=== PATIENT | female | born 1985 | race Two or more races ===

== ENCOUNTER 2017-07-27 12:15 | Emergency (ER) | payer OTHER ==
[2017-07-27 12:24] VITALS: BMI 25.0
--- NOTE | 2017-07-27 13:11 | PDOC ---
History of Present Illness - General History Source: Patient Exam Limitations: No Limitations - History of Present Illness Initial Comments: 07/27/17 14:04 The patient is a 32-year-old female, 6 weeks , , with a significant past medical history of migraines, who presents to the emergency department with abdominal pain today. Patient denies any confirmatory studies of her yet. She reports upper abdominal pain with one episode of non-bloody vomiting. Patient denies any acute trauma or vaginal bleed. The patient denies chest pain , shortness of breath, headache and dizziness. The patient denies fever, chills , diarrhea and constipation. The patient denies dysuria, frequency, urgency and hematuria. Allergies: NKDA Social History: No toxic habits reported <Fanny Teran - Last Filed: 07/27/17 14:04> <Roxi Rao - Last Filed: 07/29/17 09:22> - General Chief Complaint: Pain Stated Complaint: ABD PAIN (6 WKS ) Time Seen by Provider: 07/27/17 13:11 Past History <Fanny Teran - Last Filed: 07/27/17 14:04> - Past Medical History COPD: No - Suicide/Smoking/Psychosocial Hx Smoking History: Never smoked Information on smoking cessation initiated: No Hx Alcohol Use: No Drug/Substance Use Hx: No Substance Use Type: None <Roxi Rao - Last Filed: 07/29/17 09:22> - Past Medical History Allergies/Adverse Reactions: Allergies Allergy/AdvReac Type Severity Reaction Status Date / Time No Known Allergies Allergy Verified 07/27/17 12:24 Home Medications: Ambulatory Orders NK [No Known Home Medication] 07/27/17 Review of Systems - Review of Systems Able to Perform ROS?: Yes Comments:: 07/27/17 14:04 GENERAL/CONSTITUTIONAL: No fever or chills. No weakness. HEAD, EYES, EARS, NOSE AND THROAT: No change in vision. No ear pain or discharge. No sore throat. CARDIOVASCULAR: No chest pain or shortness of breath. RESPIRATORY: No cough, wheezing, or hemoptysis. GASTROINTESTINAL: (+) Abdominal pain. No diarrhea or constipation. GENITOURINARY: No dysuria, frequency, or change in urination. MUSCULOSKELETAL: No joint or muscle swelling or pain. No neck or back pain. SKIN: No rash NEUROLOGIC: No headache, vertigo, loss of consciousness, or change in strength/ sensation. ENDOCRINE: No increased thirst. No abnormal weight change. HEMATOLOGIC/LYMPHATIC: No anemia, easy bleeding, or history of blood clots. ALLERGIC/IMMUNOLOGIC: No hives or skin allergy. <Fanny Teran - Last Filed: 07/27/17 14:04> *Physical Exam - Vital Signs Last Vital Signs Temp Pulse Resp BP Pulse Ox 98.1 F 88 17 110/59 100 07/27/17 12:21 07/27/17 12:21 07/27/17 12:21 07/27/17 12:21 07/27/17 12:21 - Physical Exam Comments: 07/27/17 14:04 GENERAL: Awake, alert, and fully oriented, in no acute distress HEAD: No signs of trauma EYES: PERRLA, EOMI, sclera anicteric, conjunctiva clear ENT: Auricles normal inspection, hearing grossly normal, nares patent, oropharynx clear without exudates. Moist mucosa NECK: Normal ROM, supple, no lymphadenopathy, JVD, or masses LUNGS: Breath sounds equal, clear to auscultation bilaterally. No wheezes, and no crackles HEART: Regular rate and rhythm, normal S1 and S2, no murmurs, rubs or gallops ABDOMEN: Soft, nontender, normoactive bowel sounds. No guarding, no rebound. No masses EXTREMITIES: Normal range of motion, no edema. No clubbing or cyanosis. No cords, erythema, or tenderness NEUROLOGICAL: Cranial nerves II through XII grossly intact. Normal speech, normal gait SKIN: Warm, Dry, normal turgor, no rashes or lesions noted. <Fanny Teran - Last Filed: 07/27/17 14:04> - Vital Signs Last Vital Signs Temp Pulse Resp BP Pulse Ox 98.1 F 88 17 110/59 100 07/27/17 12:21 07/27/17 12:21 07/27/17 12:21 07/27/17 12:21 07/27/17 12:21 <Roxi Rao - Last Filed: 07/29/17 09:22> ED Treatment Course - LABORATORY CBC & Chemistry Diagram: 07/27/17 14:37 07/27/17 14:37 <Roxi Rao - Last Filed: 07/29/17 09:22> Medical Decision Making - Medical Decision Making Sono reviewed with patient. +Viable IUP. Labs wnl. Abd pain is upper. No signs of acute abdomen. Tolerating PO. Stable for DC home. <Roxi Rao - Last Filed: 07/29/17 09:22> *DC/Admit/Observation/Transfer - Attestations Scribe Attestion: 07/27/17 14:04 Documentation prepared by Fanny Teran, acting as medical typist for Roxi Rao MD, /DO. <Fanny Teran - Last Filed: 07/27/17 14:04> - Discharge Dispostion Admit: No <Roxi Rao - Last Filed: 07/29/17 09:22> Diagnosis at time of Disposition: Abdominal pain affecting - Discharge Dispostion Disposition: HOME Condition at time of disposition: Stable - Referrals Referrals: Sunshine Marr [Primary Care Provider] - - Patient Instructions Printed Discharge Instructions: DI for Abdominal Pain -- Early Print Language: ARABIC
[2017-07-27 14:51] LABS: URINE APPEARANCE SLCLOUDY; URINE BILIRUBIN NEGATIVE (NEGATIVE); URINE BLOOD NEGATIVE (NEGATIVE); URINE COLOR STRAW; URINE GLUCOSE (UA) NEGATIVE (NEGATIVE); URINE KETONE NEGATIVE (NEGATIVE); URINE LEUK ESTERASE NEGATIVE (NEGATIVE); URINE NITRITE NEGATIVE (NEGATIVE); URINE PROTEIN NEGATIVE (NEGATIVE); URINE UROBILINOGEN NEGATIVE mg/dL (0.2-1.0)
[2017-07-27 14:53] LABS: BASO % 0.9 % (0-2.0); EOS % 1.6 % (0-4.5); HEMATOCRIT 36.2 % (32.4-45.2); HEMOGLOBIN 11.7 GM/dL (10.7-15.3); LYMPH % 28.8 % (8-40); MCH 22.2 pg (25.7-33.7); MCHC 32.3 g/dl (32.0-36.0); MEAN CELL VOLUME 68.5 fl (80-96); MONO % 7.6 % (3.8-10.2); NEUT % 61.1 % (42.8-82.8); PLATELET COUNT 214 K/MM3 (134-434); RBC 5.29 M/mm3 (3.60-5.2); RDW 14.3 % (11.6-15.6); WHITE BLOOD COUNT 10.2 K/mm3 (4.0-10.0)
[2017-07-27 15:13] LABS: ALBUMIN 3.7 g/dl (3.4-5.0); ANION GAP 13 (8-16); BLOOD UREA NITROGEN 11 mg/dL (7-18); CALCIUM 9.3 mg/dL (8.5-10.1); CHLORIDE 102 mmol/L (98-107); CO2 22 mmol/L (21-32); CREATININE 0.7 mg/dL (0.55-1.02); GLUCOSE,RANDOM 73 mg/dL (74-106); SGOT/AST 15 U/L (15-37); SODIUM 137 mmol/L (136-145); TOT PROT 7.2 g/dl (6.4-8.2)
[2017-07-27 15:39] LABS: ALK PHOS 66 U/L (45-117); BILIRUBIN,TOTAL 0.3 mg/dL (0.2-1.0); SGPT/ALT 24 U/L (12-78)
[2017-07-27 18:15] VITALS: BP 117/68; PULSE 89; TEMP 98.2
== END 2017-07-27 18:25 | disposition home or self-care (01) ==
LOC: JER 12:15
DX: O26.891 Other specified pregnancy related conditions, first trimester (principal); R10.10 Upper abdominal pain, unspecified; Z3A.01 Less than 8 weeks gestation of pregnancy
CPT/HCPCS: 36415; 76817-TC; 80053; 81003; 84702; 85025; 99282-25

== ENCOUNTER 2018-02-07 17:17 | Emergency (ER) | payer OTHER ==
[2018-02-07 17:47] VITALS: BP 136/64; PULSE 116; TEMP 98.3; BMI 29.0
--- NOTE | 2018-02-07 17:47 | PDOC ---
History of Present Illness - General Chief Complaint: Pain Stated Complaint: Pain, Acute Time Seen by Provider: 02/07/18 17:47 - History of Present Illness Initial Comments: 33 year old female currently 8 months by LMP with history of vertigo presenting to the ED after having a syncopal episode with fall backyard and to her left side. States that she does not remember much of the event but did not lose consciousness or hit her head. Denies any nausea, vomiting chest pain, headache, sob, palpitations, or other symptoms. She has fallen in the past from her vertigo and has one severe bout of vertigo per week. 02/07/18 20:21 Past History - Past Medical History Allergies/Adverse Reactions: Allergies Allergy/AdvReac Type Severity Reaction Status Date / Time No Known Allergies Allergy Verified 02/07/18 17:48 Home Medications: Ambulatory Orders Vit No.129/Iron/Folic [ One Daily Tablet] 1 each PO DAILY 12/19 COPD: No Other medical history: vertigo - Reproductive History (#): 2 Para: 1 - Suicide/Smoking/Psychosocial Hx Smoking History: Never smoked Have you smoked in the past 12 months: No Information on smoking cessation initiated: No Hx Alcohol Use: No Drug/Substance Use Hx: No Substance Use Type: None Review of Systems - Review of Systems Constitutional: No: Chills, Diaphoresis, Fever HEENTM: No: Blurred Vision, Tearing, Recent change in vision Respiratory: No: Cough, Orthopnea, Shortness of Breath Cardiac (ROS): No: Chest Pain, Edema, Irregular Heart Rate ABD/GI: No: Constipated, Diarrhea, Nausea : No: Burning, Dysuria Musculoskeletal: Yes: Joint Pain. No: Back Pain Integumentary: No: Bruising, Change in Color, Erythema Neurological: Yes: Pre-Existing Deficit (vertigo). No: Numbness, Paresthesia, Seizure Psychiatric: No: Anxiety, Depression Endocrine: No: Flushing, Intolerance to Cold Hematologic/Lymphatic: No: Anemia, Blood Clots, Easy Bleeding, Easy Bruising *Physical Exam - Vital Signs Last Vital Signs Temp Pulse Resp BP Pulse Ox 98.3 F 116 H 18 136/64 100 02/07/18 17:17 02/07/18 17:17 02/07/18 17:17 02/07/18 17:17 02/07/18 17:17 - Physical Exam General Appearance: Yes: Nourished, Appropriately Dressed. No: Apparent Distress HEENT: positive: EOMI, KIMANI, Normal ENT Inspection, Normal Voice Neck: positive: Trachea midline, Normal Thyroid, Supple. negative: Tender, Rigid Respiratory/Chest: positive: Lungs Clear, Normal Breath Sounds. negative: Chest Tender, Respiratory Distress, Accessory Muscle Use Cardiovascular: positive: Regular Rhythm, Tachycardia. negative: Regular Rate Gastrointestinal/Abdominal: positive: Normal Bowel Sounds, Flat, Soft. negative : Tender Lymphatic: negative: Adenopathy, Tenderness Musculoskeletal: positive: Decreased Range of Motion. negative: Normal Inspection (obvious increaed joint space on the left anterior shoulder with decreased ROM 2/2 pain.) Extremity: positive: Normal Capillary Refill. negative: Normal Inspection, Normal Range of Motion Integumentary: positive: Normal Color, Dry, Warm Neurologic: positive: rolled ham lacer II-XII NML intact, Fully Oriented, Alert, Normal Mood/ Affect, Normal Response, Motor Strength 5/5 Procedures - Joint Reduction Left Joint Reduction Site: left: Shoulder Pre-Procedure NV Exam: normal Conscious Sedation: No Reduction Attempts: 1 Anesthetic: 2% Lidocaine Amount (mL): 10 Amt. of medication administered: 10mg Procedure: Traction Counter Traction Post-Procedure NV Exam: normal Complications: No Post Joint Reduction Film: joint reduced Splint: No Immobilized: Yes (Shoulder sling) - Arthrocentesis Indication: Reduce Pain Arthrocentesis Site: left: shoulder Betadine Prep: Yes Sterile Dressing Applied: No Dry Tap: No Anesthesia: 2% Lidocaine Needle Size (guage): 18g Complications: No (Intrarticular injection for pain control prior to shoulder reduction) ED Treatment Course - LABORATORY CBC & Chemistry Diagram: 02/07/18 18:00 02/07/18 18:00 Medical Decision Making - Medical Decision Making 33 year od with history of severe vertigo who fell and dislocated her left shulder when trying to reach out to a desk. No other injuries noted. Shoulder reduced after intra-articular lidocaine injection. No concern for cardiac or neuro related fall as she did not syncopize and admits to these issues in the past with heavy vertigo. Shoulder reduced per post reduction films. NV pre and post procedure. EKG showing NSR with normal Qt, normal MT, and normal QRS, without ST or T wave changes. Labs WNL. Patient sent up to OB floor for HR check per hospital protocol. 02/07/18 20:57 *DC/Admit/Observation/Transfer Diagnosis at time of Disposition: Vertigo Fall Qualifiers: Encounter type: initial encounter Qualified Code(s): W19.XXXA - Unspecified fall, initial encounter Dislocation of left shoulder joint Qualifiers: Encounter type: initial encounter Qualified Code(s): S43.005A - Unspecified dislocation of left shoulder joint, initial encounter - Discharge Dispostion Disposition: HOME Condition at time of disposition: Improved Decision to Admit order: No - Referrals Referrals: Graciela Cid MD [Primary Care Provider] - Nicholas Mcelroy MD [Staff Physician] - - Patient Instructions Printed Discharge Instructions: DI for Shoulder Dislocation, How to Use a Sling Additional Instructions: Please keep your arm in a sling for the next 24 hours. Please make an appointment with orthopedic surgery for this week. Please follow up with your Obgyn doctor this week. Please use Tylenol for your shoulder pain. Please return to the ED if your shoulder comes back out of place, you have numbness or tingling of your hand, or you have any new/ worsening symptoms. Print Language: MALDIVIAN - Post Discharge Activity
[2018-02-07] MEDS ORDERED: morphine CARPU-JECT 2 MG/1 ML DISP.SYRIN IVPUSH ONE ×2 (17:51→18:53)
[2018-02-07] MEDS ORDERED: MORPHINE SULFATE 2 MG/ML VIAL ONE (17:54)
--- NOTE | 2018-02-07 17:54 | PDOC ---
Attending Attestation - HPI HPI: 02/07/18 18:32 The patient is a 33 year old female currently 8 months , with a past medical history of vertigo who presents to the emergency department for evaluation of left shoulder pain s/p vertigo episode. 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 <Sandra Ellis - Last Filed: 02/07/18 18:31> - Resident Resident Name: Andrea Mendoza - ED Attending Attestation I have performed the following: I have examined & evaluated the patient, The case was reviewed & discussed with the resident, I agree w/resident's findings & plan, Exceptions are as noted - Physicial Exam PE: 02/07/18 20:35 wnwd 33 yo female with deformity to left shoulder head ncat,no abrasions,no scalp lacerations face superficial maxillary lip laceration -she has reproducible occlusion,no fractured teeth eyes steve eomi neck no cervical vertebral tenderness lungs cta b/l cvs [id number] pelvic no hip pain,no vag bleeding reported or cramping abd gravid,protuberant ext left shoulder anteriorly displaced,sensation intact,good ulnar and radial pulses neuro axox3,ambulatory skin no lacerations - Medical Decision Making 02/08/18 01:22 IMP rt shoulder anterior dislocation reduced manually pt has a lidocaine injection into the joint space and morphine 4 mg IV post reduction radiograph reveals good reduction pt 's arm put in a sling pt went to L and D for monitoring <Neris Mosley - Last Filed: 02/08/18 01:25> Attestations - Attestations Documentation prepared by Sandra Ellis, acting as biomedical engineering internship for Neris Mosley MD. <Sandra Ellis - Last Filed: 02/07/18 18:31>
[2018-02-07 18:14] LABS: BASO % 0.9 % (0-2.0); EOS % 1.2 % (0-4.5); HEMATOCRIT 34.7 % (32.4-45.2); HEMOGLOBIN 11.3 GM/dL (10.7-15.3); LYMPH % 27.6 % (8-40); MCH 22.5 pg (25.7-33.7); MCHC 32.5 g/dl (32.0-36.0); MEAN CELL VOLUME 69.3 fl (80-96); MONO % 8.8 % (3.8-10.2); NEUT % 61.5 % (42.8-82.8); RDW 14.3 % (11.6-15.6); WHITE BLOOD COUNT 8.2 K/mm3 (4.0-10.0)
[2018-02-07 18:28] LABS: ADD RBC MORPHOLOGY YES
[2018-02-07 18:32] LABS: ALBUMIN 2.9 g/dl (3.4-5.0); ALK PHOS 131 U/L (45-117); ANION GAP 8 MMOL/L (8-16); BILIRUBIN,TOTAL 0.2 mg/dL (0.2-1); BLOOD UREA NITROGEN 8 mg/dL (7-18); CALCIUM 8.9 mg/dL (8.5-10.1); CHLORIDE 105 mmol/L (98-107); CO2 24 mmol/L (21-32); CREATININE 0.7 mg/dL (0.55-1.3); GLUCOSE,RANDOM 93 mg/dL (74-106); POTASSIUM 3.8 mmol/L (3.5-5.1); SGOT/AST 19 U/L (15-37); SGPT/ALT 19 U/L (13-61); SODIUM 136 mmol/L (136-145)
[2018-02-07] MEDS ORDERED: LIDOCAINE HCL 1%, 10 MG/ML (50 mL VIAL) INF ONE (18:53)
[2018-02-07] MEDS ORDERED: morphine SULFATE 4 MG/ML VIAL ONE (19:07)
[2018-02-07] MEDS ORDERED: LIDOCAINE HCL/PF 1% SDV 5ML VIAL ONE (19:07)
[2018-02-07] MEDS ORDERED: LIDOCAINE HCL 2% (20ML MULTI-DOSE VIAL) NR ONE (19:10)
[2018-02-07 19:49] LABS: MEAN PLT VOLUME 11.8 fl (7.5-11.1); PLATELET COUNT 112 K/MM3 (134-434)
[2018-02-07 19:50] LABS: MACROCYTOSIS 1+; PLATELET ESTIMATE SLT DECREASE
--- NOTE | 2018-02-08 10:43 | EKG ---
Test Reason : Blood Pressure : / mmHG Vent. Rate : 101 BPM Atrial Rate : 101 BPM P-R Int : 128 ms QRS Dur : 082 ms QT Int : 342 ms P-R-T Axes : 047 056 021 degrees QTc Int : 443 ms SINUS TACHYCARDIA OTHERWISE NORMAL ECG NO PREVIOUS ECGS AVAILABLE Confirmed by Bam Yao MD ([id number]) on 02/08/2018 10:42:43 AM Referred By: Confirmed By:Bam Yao MD
== END 2018-02-07 21:51 | disposition home or self-care (01) ==
LOC: JER 17:17
PROC: 0RSKXZZ Reposition Left Shoulder Joint, External Approach (ICD-10-PCS; principal; 2018-02-07)
PROC: 0R9K3ZZ Drainage of Left Shoulder Joint, Percutaneous Approach (ICD-10-PCS; 2018-02-07)
DX: O26.893 Other specified pregnancy related conditions, third trimester (principal); Z3A.00 Weeks of gestation of pregnancy not specified; S43.005A Unspecified dislocation of left shoulder joint, initial encounter; W18.39XA Other fall on same level, initial encounter; Y93.89 Activity, other specified; Y92.9 Unspecified place or not applicable
CPT/HCPCS: 36415; 73030-TC-LT-FY; 80053; 85025; 86850; 86900; 86901; 93005; 93010; 99282-25

== ENCOUNTER 2018-02-24 20:21 | Emergency (ER) | payer OTHER ==
[2018-02-24 20:57] VITALS: BMI 29.0
--- NOTE | 2018-02-24 20:57 | PDOC ---
Rapid Medical Evaluation Time Seen by Provider: 02/24/18 20:53 Medical Evaluation: Allergies Allergy/AdvReac Type Severity Reaction Status Date / Time No Known Allergies Allergy Verified 02/07/18 17:48 02/24/18 20:53 Pt presents to the ED for nausea, vomiting and abdominal pain at 37 weeks . VSS, no vaginal bleeding. TTP of the epigastric region. Pt may proceed to L&D Discharge Disposition - Diagnosis Nausea & vomiting - Referrals - Patient Instructions - Post Discharge Activity
[2018-02-24 22:40] VITALS: BP 103/66; PULSE 92; TEMP 98.5
[2018-02-24] MEDS ORDERED: DEXTROSE 5%-LACTATED RINGERS 500 ML IV ONE (23:00)
[2018-02-25] MEDS ORDERED: DEXTROSE 5%-LACTATED RINGERS 500 ML IV ONE
== END 2018-02-25 02:40 | disposition home or self-care (01) ==
LOC: JER 20:21
DX: O26.893 Other specified pregnancy related conditions, third trimester (principal); R10.13 Epigastric pain; R11.2 Nausea with vomiting, unspecified; Z3A.37 37 weeks gestation of pregnancy
CPT/HCPCS: 99282-25

== ENCOUNTER 2018-03-06 03:45 | Inpatient (IN) | payer OTHER ==
[2018-03-06] MEDS: ELECTROLYTE-148 SOLN 1,000 ML IV SCH (04:00)
[2018-03-06] MEDS ORDERED: PROMETHAZINE HCL 25 MG/1 ML VIAL ONE (04:24)
[2018-03-06] MEDS ORDERED: BUTORPHANOL TARTRATE 1 MG/ML VIAL ONE ×2 (04:24)
[2018-03-06] MEDS ORDERED: BUTORPHANOL TARTRATE 1 MG/ML VIAL IVPUSH ONE (04:30)
[2018-03-06] MEDS ORDERED: PROMETHAZINE HCL 25 MG/1 ML VIAL IVPUSH ONE (04:30)
[2018-03-06 04:38] LABS: BASO % 0.5 % (0-2.0); EOS % 0.4 % (0-4.5); HEMATOCRIT 35.9 % (32.4-45.2); HEMOGLOBIN 11.7 GM/dL (10.7-15.3); LYMPH % 21.6 % (8-40); MCH 22.9 pg (25.7-33.7); MCHC 32.5 g/dl (32.0-36.0); MEAN CELL VOLUME 70.4 fl (80-96); MEAN PLT VOLUME 12.5 fl (7.5-11.1); MONO % 8.2 % (3.8-10.2); NEUT % 69.3 % (42.8-82.8); PLATELET COUNT 111 K/MM3 (134-434)
[2018-03-06 04:57] LABS: PROTHROMBIN TIME (PATIENT) 11.8 SEC (9.7-13.0)
[2018-03-06 04:59] LABS: ACTIVATED PTT 24.3 SECONDS (25.2-36.5)
[2018-03-06 05:06] LABS: ANION GAP 11 MMOL/L (8-16); BLOOD UREA NITROGEN 10 mg/dL (7-18); CHLORIDE 103 mmol/L (98-107); CO2 21 mmol/L (21-32); CREATININE 0.9 mg/dL (0.55-1.3); GLUCOSE,RANDOM 81 mg/dL (74-106); POTASSIUM 4.3 mmol/L (3.5-5.1); SODIUM 135 mmol/L (136-145)
[2018-03-06 05:22] VITALS: BMI 28.5
[2018-03-06] MEDS ORDERED: OXYTOCIN 20 UNITS in 0.9% NS 20 UNIT/1,000 ML INFUS.BAG IV ONE ×2 (05:42→07:00)
[2018-03-06] MEDS ORDERED: AMPICILLIN SODIUM 2 GM VIAL ONE (05:45)
[2018-03-06] MEDS ORDERED: AMPICILLIN - 2 GM in SODIUM CHLORIDE 100 ML IVPB ONE (05:45)
--- NOTE | 2018-03-06 05:48 | HP ---
Past Medical History - Primary Care Physician PCP:: Graciela Cid - Admission Chief Complaint: Active Labor History of Present Illness: 32 yo EDC 03/17/18 weeks EGA 38 week with co active labor NO ROM bleedine abd pain hx of inguinal herna History Source: Patient - Past Medical History ...: 2 ...Para: 1 ...Term: 1 ...LMP: 06/23/17 ... Weeks Gestation by Dates: 38 ...EDC by Dates: 03/20/18 ...EDC by Sono: 03/17/18 - Past Surgical History Past Surgical History: Yes: Hernia Repair Hx Myomectomy: No Hx Transabdominal Cerclage: No - Smoking History Smoking history: Unknown if ever smoked Have you smoked in the past 12 months: No - Alcohol/Substance Use Hx Alcohol Use: No - Social History Usual Living Arrangement: Yes: With Spouse Home Medications - Allergies Allergies/Adverse Reactions: Allergies Allergy/AdvReac Type Severity Reaction Status Date / Time No Known Allergies Allergy Verified 02/24/18 20:57 - Home Medications Home Medications: Ambulatory Orders Vit No.129/Iron/Folic [ One Daily Tablet] 1 each PO DAILY 12/19 Review of Systems - Review of Systems Constitutional: reports: No Symptoms Eyes: reports: No Symptoms HENT: reports: No Symptoms Neck: reports: No Symptoms Cardiovascular: reports: No Symptoms Respiratory: reports: No Symptoms Gastrointestinal: reports: Abdominal Pain Genitourinary: reports: No Symptoms Breasts: reports: No Symptoms Reported Musculoskeletal: reports: No Symptoms Integumentary: reports: No Symptoms Neurological: reports: No Symptoms Endocrine: reports: No Symptoms Hematology/Lymphatic: reports: No Symptoms Psychiatric: reports: No Symptoms Physical Exam - Maternity Vital Signs: Vital Signs Temperature 97.9 F 03/06/18 04:58 Pulse Rate 87 03/06/18 05:00 Respiratory Rate 20 03/06/18 05:00 Blood Pressure 114/78 03/06/18 05:00 O2 Sat by Pulse Oximetry (%) Constitutional: Yes: Well Nourished, No Distress HENT: Yes: WNL Neck: Yes: WNL Cardiovascular: Yes: WNL Lungs: Clear to auscultation Breast(s): Yes: WNL - Abdominal Exam/OB Fundal Height: 38 Number of Fetuses: Single Presentation: Vertex Contractions: Yes Regularity: Regular Heart Rate Location: [facility] Category: I Accelerations: None Decelerations: None - Vaginal Exam/OB Vaginal Bleediing: No Dilatation (cm): 9 cm Effacement (%): 100 Amniotic Membrane Status: Ruptured Presentation: Vertex/Position - Physical Exam Musculoskeletal: Yes: WNL Extremities: Yes: WNL Edema: No Integumentary: Yes: WNL Psychiatric: Yes: WNL, Alert, Oriented - Labs Lab Results: CBC, BMP 03/06/18 04:15 03/06/18 04:15 Hemorrhage Risk Assessment - Risk Factors Risk Score: 0 Risk Level: Low Risk Problem List - Problems (1) Labor established Code(s): [id number] - Assessment/Plan iup at 38 week active labor Cat 1 Plan ANticiapte vaginal delivery
[2018-03-06] MEDS ORDERED: BENZOCAINE 20% 57 GM BOTTLE TP PRN (05:50)
[2018-03-06] MEDS ORDERED: METHYLERGONOVINE MALEATE 0.2 MG/1 ML AMP IM PRN (05:50)
[2018-03-06] MEDS ORDERED: BENZOCAINE 28 GM HEMORRHOIDAL OINTMENT TP PRN (05:50)
[2018-03-06] MEDS ORDERED: WITCH HAZEL 50% (TUCKS) 40 PAD/JAR PAD TP PRN (05:50)
[2018-03-06] MEDS ORDERED: BISACODYL 10 MG SUPP.RECT RC PRN (05:50)
[2018-03-06] MEDS ORDERED: ELECTROLYTE-148 SOLN 1,000 ML IV SCH (06:00)
--- NOTE | 2018-03-06 06:16 | PN ---
Ante-Partal Exam - Subjective Subjective: PPt doing well Vital Signs: Vital Signs Temperature 97.9 F 03/06/18 04:58 Pulse Rate 87 03/06/18 05:00 Respiratory Rate 20 03/06/18 05:00 Blood Pressure 114/78 03/06/18 05:00 O2 Sat by Pulse Oximetry (%) Bleeding: No Headache: No Visual changes: No Right upper quadrant pain: No - Contractions Contractions: Yes Regularity: Regular Intensity: Mild/Mod Monitor Mode: External - Exam during Labor Variability: Moderate Category: I Monitor Accelerations: Present Monitor Decelerations: None Exam: Vaginal Dilatation (cm): rim Effacement (%): 100 Amniotic Membrane Status: Ruptured Amniotic Fluid: Clear Presentation: Vertex Station: 0 - Intrapartum Hemorrhage Risk Risk Score: 0 Risk Level: Low Risk - Assessment/Plan Assessment/Plan: active labor 38 weeks Cat 1 Plan anticipate vaginal delivery
[2018-03-06] MEDS ORDERED: LIDOCAINE HCL 1% PRESERVATIVE FREE - 30ML VIAL ONE (07:00)
[2018-03-06] MEDS: OXYTOCIN 20 UNITS in 0.9% NS 20 UNIT/1,000 ML INFUS.BAG IV SCH ×2 (08:20→14:15)
--- NOTE | 2018-03-06 08:51 | PN ---
Delivery - Delivery Vaginal Delivery: No Problems Type of Anesthesia: None Episiotomy/Laceration: None EBL (cc): 250 (body cord x 1) Delivery, Single - Stages of Labor Date 1st Stage Initiatied: 03/05/18 Time 1st Stage Initiated: 08:00 Date 2nd Stage Initiated: 03/06/18 Time 2nd Stage Initiated: 07:40 Date of Delivery: 03/06/18 Placenta: Yes: Spontaneous - Condition of Infant Gender: Female Position: OA - [place] Feeding Plan Initial Plan: Elected not to breastfeed exclusively throughout hospitalization
[2018-03-06] MEDS ORDERED: IBUPROFEN 600 MG TABLET (FP) PO ONE (09:24)
[2018-03-06] MEDS: IBUPROFEN 600 MG TABLET (FP) PO PRN ×3 (09:26→21:44)
[2018-03-06] MEDS: PRENATAL VITAMINS W/ FOLIC ACID TABLET (FP) PO SCH (09:27)
[2018-03-06] MEDS: ACETAMINOPHEN 325 MG TABLET (FP) PO PRN ×2 (15:20→21:43)
[2018-03-07 07:23] LABS: BASO % 0.6 % (0-2.0); EOS % 0.7 % (0-4.5); HEMATOCRIT 33.7 % (32.4-45.2); HEMOGLOBIN 10.6 GM/dL (10.7-15.3); LYMPH % 27.8 % (8-40); MCH 22.4 pg (25.7-33.7); MCHC 31.5 g/dl (32.0-36.0); MEAN CELL VOLUME 71.1 fl (80-96); MEAN PLT VOLUME 11.9 fl (7.5-11.1); MONO % 7.7 % (3.8-10.2); NEUT % 63.2 % (42.8-82.8); PLATELET COUNT 94 K/MM3 (134-434); RBC 4.74 M/mm3 (3.60-5.2); RDW 14.4 % (11.6-15.6); WHITE BLOOD COUNT 10.7 K/mm3 (4.0-10.0)
[2018-03-07] MEDS: PRENATAL VITAMINS W/ FOLIC ACID TABLET (FP) PO SCH (09:06)
[2018-03-07] MEDS: IBUPROFEN 600 MG TABLET (FP) PO PRN ×3 (09:06→21:31)
[2018-03-07] MEDS: ACETAMINOPHEN 325 MG TABLET (FP) PO PRN ×3 (09:07→21:31)
[2018-03-07 09:42] LABS: PLATELET ESTIMATE DECREASED
[2018-03-07] MEDS ORDERED: DIPHTH,PERTUSS(ACELL),TET 0.5 ML DISP.SYRIN IM ONE (10:00)
--- NOTE | 2018-03-07 12:48 | PN ---
Post Note - Post Date of Delivery: 03/06/18 Post Day: 1 Vital Signs: Vital Signs - 24 hr 03/06/18 03/06/18 03/06/18 13:40 17:49 21:40 Temperature 99.0 F 99.0 F 98.2 F Pulse Rate 96 H 77 78 Respiratory 20 18 20 Rate Blood Pressure 106/58 L 108/56 L 106/57 L 03/07/18 03/07/18 06:00 10:00 Temperature 98.3 F 98.5 F Pulse Rate 72 99 H Respiratory 20 20 Rate Blood Pressure 112/83 99/59 L Labs: Laboratory Results - last 24 hr 03/07/18 07:05 WBC 10.7 H RBC 4.74 Hgb 10.6 L Hct 33.7 MCV 71.1 L MCH 22.4 L MCHC 31.5 L RDW 14.4 Plt Count 94 L MPV 11.9 H Absolute Neuts (auto) 6.7 Neutrophils % 63.2 Lymphocytes % 27.8 D Monocytes % 7.7 Eosinophils % 0.7 Basophils % 0.6 Nucleated RBC % 0 Platelet Estimate Decreased Platelet Comment Large platelets - Subjective Subjective: No Complaints - Objective Afebrile: Yes Breast: Not engorged Abdomen: Soft, Non-tender Uterus: Fundus firm Vagina: Scant lochia Extremities: Non-tender - Assessment/Plan (1) Labor established Assessment: S/P Normal Plan: Routine Care
[2018-03-07] MEDS ORDERED: SENNOSIDES/DOCUSATE COMBO (SENNA PLUS) TABLET (UD) PO PRN (22:00)
[2018-03-08] MEDS: OXYTOCIN 20 UNITS in 0.9% NS 20 UNIT/1,000 ML INFUS.BAG IV SCH (01:58)
[2018-03-08] MEDS: ELECTROLYTE-148 SOLN 1,000 ML IV SCH (01:58)
[2018-03-08 07:48] VITALS: BP 116/70; PULSE 72; TEMP 98.4
--- NOTE | 2018-03-08 08:58 | DS ---
Physical Exam-EMT PARAMEDIC Vital Signs: Vital Signs Temperature 98.4 F 03/08/18 07:30 Pulse Rate 72 03/08/18 07:30 Respiratory Rate 18 03/08/18 07:30 Blood Pressure 116/70 03/08/18 07:30 O2 Sat by Pulse Oximetry (%) 99 03/06/18 09:30 Constitutional: Yes: Well Nourished, No Distress Neck: Yes: WNL Cardiovascular: Yes: WNL Respiratory: Yes: WNL Gastrointestinal: Yes: WNL, Normal Bowel Sounds, Soft ....Post : Yes: Uterus firm, Uterus non-tender Breast(s): Yes: WNL Musculoskeletal: Yes: WNL Extremities: Yes: WNL Neurological: Yes: WNL, Alert, Oriented Labs: CBC, BMP 03/07/18 07:05 03/06/18 04:15 Delivery - Delivery Vaginal Delivery: No Problems Type of Anesthesia: None Episiotomy/Laceration: None EBL (cc): 250 (body cord x 1) Delivery, Single - Stages of Labor Date 1st Stage Initiatied: 03/05/18 Time 1st Stage Initiated: 08:00 Date 2nd Stage Initiated: 03/06/18 Time 2nd Stage Initiated: 07:40 Date of Delivery: 03/06/18 Time of Delivery: 08:15 Time Placenta Delivered: 08:20 Placenta: Yes: Spontaneous - 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 Cardiovascular Icu Present: No Infant Gender: Female Weight: 6 lb 9 oz Position: OA Total Hours ROM (Hrs/Mins): 02:35 - 1 Minute Total Score: 9 5 Minutes Total Score: 9 - Feeding Plan Initial Plan: Elected not to breastfeed exclusively throughout hospitalization Discharge Summary Reason For Visit: LABOR Current Active Problems Labor established (Acute) Procedures: Principal: Normal Vaginal Delivery Hospital Course: Unremarkable Condition: Good - Instructions Disposition: HOME - Home Medications Comprehensive Discharge Medication List: Ambulatory Orders Vit No.129/Iron/Folic [ One Daily Tablet] 1 each PO DAILY 12/19 Ibuprofen [Motrin -] 600 mg PO TID #21 tablet 03/08/18
[2018-03-08] MEDS: PRENATAL VITAMINS W/ FOLIC ACID TABLET (FP) PO SCH (09:03)
== END 2018-03-08 11:40 | disposition home or self-care (01) | DRG 560 ==
LOC: JLDR 03:45 → J3W 10:05
PROVIDERS: ADMIT Obstetrics & Gynecology; ATTEND Obstetrics & Gynecology
PROC: 10E0XZZ Delivery of Products of Conception, External Approach (ICD-10-PCS; principal; 2018-03-06)
DX: O80 Encounter for full-term uncomplicated delivery (principal); Z3A.38 38 weeks gestation of pregnancy; Z37.0 Single live birth
CPT/HCPCS: 36415; 59409; 80048; 85025; 85610; 85730; 86593; 86850; 86900; 86901; 90686; 90715; G0008

== ENCOUNTER 2018-09-08 05:19 | Day surgery (SDC) | payer OTHER ==
[2018-09-06 16:54] VITALS: BMI 23.3
[2018-09-08] MEDS ORDERED: LIDOCAINE HCL/PF 2% SDV 5ML VIAL ONE (14:23)
[2018-09-08] MEDS ORDERED: PROPOFOL 20 ML ONE (14:23)
[2018-09-08] MEDS ORDERED: MIDAZOLAM HCL 2 MG/2 ML SINGLE DOSE VIAL ONE (14:24)
[2018-09-08] MEDS ORDERED: ROCURONIUM BROMIDE 50 MG/5 ML VIAL ONE (14:24)
[2018-09-08] MEDS ORDERED: BUPIVACAINE HCL/PF 0.5% (5MG/ML) 10 ML VIAL ONE (14:35)
--- NOTE | 2018-09-08 14:56 | HP ---
Admitting History and Physical - Admission Chief Complaint: Multiparity History of Present Illness: 33 yo Para 2, LMP 08/24/18, with multiparity, is pre op for bilateral tubal ligation. History Source: Patient Limitations to Obtaining History: No Limitations - Past Medical History ...LMP: 08/24/18 ...: No ...Para: 2 - Past Surgical History Past Surgical History: Yes: Hernia Repair - Smoking History Smoking history: Never smoked Have you smoked in the past 12 months: No - Alcohol/Substance Use Hx Alcohol Use: Yes (social) - Social History Usual Living Arrangement: Yes: With Significant Other History of Recent Travel: No Home Medications - Allergies Allergies/Adverse Reactions: Allergies Allergy/AdvReac Type Severity Reaction Status Date / Time No Known Allergies Allergy Verified 09/08/18 14:13 - Home Medications Home Medications: Ambulatory Orders Vit No.129/Iron/Folic [ One Daily Tablet] 1 each PO DAILY 12/19 Family Disease History - Family Disease History Family History: Unremarkable Review of Systems - Review of Systems Constitutional: reports: No Symptoms Eyes: reports: No Symptoms HENT: reports: No Symptoms Neck: reports: No Symptoms Cardiovascular: reports: No Symptoms Respiratory: reports: No Symptoms Gastrointestinal: reports: No Symptoms Genitourinary: reports: No Symptoms Breasts: reports: No Symptoms Reported Musculoskeletal: reports: No Symptoms Integumentary: reports: No Symptoms Neurological: reports: No Symptoms Endocrine: reports: No Symptoms Psychiatric: reports: No Symptoms Pain Intensity: 0 Physical Examination Vital Signs: Vital Signs Temperature 98.3 F 09/08/18 14:14 Pulse Rate 83 09/08/18 14:14 Respiratory Rate 16 09/08/18 14:14 Blood Pressure 113/70 09/08/18 14:14 O2 Sat by Pulse Oximetry (%) 99 09/08/18 14:14 Constitutional: Yes: Well Nourished Eyes: Yes: Conjunctiva Clear HENT: Yes: Atraumatic Neck: Yes: Supple Cardiovascular: Yes: Regular Rate and Rhythm Respiratory: Yes: Regular Gastrointestinal: Yes: Normal Bowel Sounds Neurological: Yes: Alert, Oriented ...Motor Strength: WNL Psychiatric: Yes: Alert, Oriented Problem List - Problems (1) Multiparity Code(s): Z64.1 - PROBLEMS RELATED TO MULTIPARITY Assessment/Plan Multiparity Pre op for Lap BTL Consent signed Anesthesia to see patient
[2018-09-08] MEDS ORDERED: DEXAMETHASONE SOD PHOSPHATE 4 MG/1 ML VIAL ONE (15:22)
[2018-09-08] MEDS ORDERED: KETOROLAC TROMETHAMINE 30 MG/1 ML VIAL ONE (15:24)
[2018-09-08] MEDS ORDERED: NEOSTIGMINE METHYLSULFATE 0.5 MG/ML - 10 ML MDV ONE (15:41)
[2018-09-08] MEDS ORDERED: GLYCOPYRROLATE 0.2 MG/1 ML VIAL ONE (15:41)
[2018-09-08] MEDS ORDERED: ONDANSETRON 4 MG/2 ML VIAL IVPUSH PRN (15:59)
[2018-09-08] MEDS ORDERED: oxyCODONE HCL 5 MG TABLET PO PRN (15:59)
[2018-09-08] MEDS ORDERED: PROMETHAZINE HCL 25 MG/1 ML VIAL IVPUSH PRN (15:59)
--- NOTE | 2018-09-08 16:08 | OP ---
Operative Note - Note: Operative Date: 09/08/18 Pre-Operative Diagnosis: Multiparity Operation: Laparoscopic bilateral tubal ligation Findings: Normal pelvis Post-Operative Diagnosis: Same as Pre-op Surgeon: Graciela Cid Anesthesia: General Specimens Removed: None Estimated Blood Loss (mls): 0
[2018-09-08] MEDS ORDERED: oxyCODONE HCL 5 MG TABLET ONE (18:01)
[2018-09-08 19:01] VITALS: PULSE 82; TEMP 97.5
[2018-09-08 19:02] VITALS: BP 107/61
--- NOTE | 2018-09-10 07:59 | OP ---
DATE OF OPERATION: 09/08/2018 PREOPERATIVE DIAGNOSIS: Multiparity, desires permanent sterilization. POSTOPERATIVE DIAGNOSIS: Multiparity, desires permanent sterilization. PROCEDURE: Laparoscopic bilateral tubal ligation. SURGEON: Graciela Cid MD ANESTHESIA: General. COMPLICATIONS: None. ESTIMATED BLOOD LOSS: Less than 5 mL. DESCRIPTION OF PROCEDURE: Patient was taken to the operating room, where general anesthesia was administered. Patient was then prepped and draped in proper sterile fashion. She was placed in lithotomy position. Then, a bivalve speculum was placed in the patients vagina. The anterior lip of the cervix was grasped with a single-tooth tenaculum. A HUMI uterine manipulator was then advanced into the uterus to provide a means to manipulate the uterus. The speculum was removed from the vagina. Attention was then turned to the patients abdomen, where a 5-mm skin incision was made in the umbilical fold. The Veress needle was carefully introduced into the peritoneal cavity while tenting the abdominal wall. Intraperitoneal placement was confirmed by use of the water filled syringe and drop in insufflation of CO2 gas. The trocar and sleeve were then advanced without difficulty where intraabdominal placement was confirmed by the laparoscope. Pneumoperitoneum was obtained with 3 L of CO2 gas, and the 5-mm trocar and sleeve were then advanced without difficulty into the abdomen, where intraabdominal placement was confirmed by the laparoscope. A second skin incision was then made 2 cm above the pubic symphysis in the midline. The second trocar and sleeve were then advanced under direct visualization. A survey of the patients cervix and abdomen revealed entirely normal anatomy. Then, the LigaSure was used to grasp the right tube. A 3-cm segment of the tube was then cauterized until complete blanching of the tube was then noted. The same procedure was performed on the left side. When finished, the instruments were removed. The patient was taken out of lithotomy position. The Chapman catheter and the HUMI were removed. Patient was taken to PACU in stable condition. Ophelia [id number] MTDD
== END 2018-09-08 19:04 | disposition home or self-care (01) ==
LOC: JASU-SURG 05:19
PROVIDERS: ATTEND Obstetrics & Gynecology
PROC: 0U574ZZ Destruction of Bilateral Fallopian Tubes, Percutaneous Endoscopic Approach (ICD-10-PCS; principal; 2018-09-08 14:30)
DX: Z30.2 Encounter for sterilization (principal)
CPT/HCPCS: 94760

== ENCOUNTER 2020-12-16 13:50 | Emergency (ER) | payer OTHER ==
[2020-12-16 14:12] VITALS: BP 116/78; PULSE 89; TEMP 98.3; BMI 26.6
[2020-12-16] MEDS ORDERED: KETOROLAC TROMETHAMINE 60 MG/2 ML VIAL IM ONE (15:47)
[2020-12-16] MEDS ORDERED: IBUPROFEN 400 MG TABLET (FP) PO ONE (16:21)
== END 2020-12-16 18:30 | disposition home or self-care (01) ==
LOC: JERFT 13:50
PROC: 3E0333Z Introduction of Anti-inflammatory into Peripheral Vein, Percutaneous Approach (ICD-10-PCS; principal; 2020-12-16)
DX: M25.522 Pain in left elbow (principal); Y93.E2 Activity, laundry
CPT/HCPCS: 73070-TC-LT-FY; 99284-25

== ENCOUNTER 2022-02-12 08:18 | Emergency (ER) | payer OTHER ==
[2022-02-12 08:47] VITALS: BP 131/66; PULSE 108; RESP 16; TEMP 98.3; BMI 24.2
[2022-02-12] MEDS ORDERED: KETOROLAC TROMETHAMINE 60 MG/2 ML VIAL IM ONE (09:21)
[2022-02-12] MEDS ORDERED: LIDOCAINE 5% TOPICAL PATCH TP ONE (09:21)
[2022-02-12] MEDS ORDERED: LIDOCAINE 5% TOPICAL PATCH ONE (09:39)
[2022-02-12] MEDS ORDERED: KETOROLAC TROMETHAMINE 30 MG/1 ML VIAL ONE (09:39)
[2022-02-12] MEDS ORDERED: diazePAM 2 MG TABLET PO ONE (10:47)
[2022-02-12] MEDS ORDERED: diazePAM 2 MG TABLET ONE (10:51)
== END 2022-02-12 11:11 | disposition home or self-care (01) ==
LOC: JERFT 08:18 → JER 08:18 → JERFT 11:11
PROC: 3E0233Z Introduction of Anti-inflammatory into Muscle, Percutaneous Approach (ICD-10-PCS; principal; 2022-02-12)
DX: M54.41 Lumbago with sciatica, right side (principal)
CPT/HCPCS: 72100-TC-FY; 99284-25